=== PATIENT | female | born 1965 | race Caucasian/White ===

== ENCOUNTER 2020-02-14 04:05 | Emergency (ER) | payer SELFPAY ==
[~2020-02-14] VITALS: Ht 152.4 cm; Wt 66.7 kg
[2020-02-14 04:12] VITALS: BP 105/75
--- NOTE | 2020-02-14 04:15 | NUR ---
54 y/o female presented to the ED c/o chillsthat began at 0300 today. Pt denies coughing, pt denies N/V, pt denies NORRIS or flu-like symptoms. Pt denies fever. Pt states that she had a surgery in 2012 to remove a blood clot from her heart. Pt states that she takes aspirin. Pt denies taking any other medication. Pt is sitting upright in bed, bed is locked and in lowest position. Side rails x1. Pt is not in any acute distress at this time. PMH: pre-diabetic, clots NKA
--- NOTE | 2020-02-14 04:16 | NUR ---
To ED bed 09
--- NOTE | 2020-02-14 04:22 | NUR ---
ERMD AT BEDSIDE FOR MEDICAL EVALUATION.
--- NOTE | 2020-02-14 04:37 | NUR ---
EKG PERFORMED AT BEDSIDE. EKG READS SINUS TACHYCARDIA @ 118
--- NOTE | 2020-02-14 04:38 | NUR ---
RT AT BEDSIDE
--- NOTE | 2020-02-14 04:39 | NUR ---
blood labs and mike swab collected and walked over to lab
--- NOTE | 2020-02-14 04:41 | NUR ---
xray at bedside
[2020-02-14 04:56] LABS: BASOPHILS # (AUTO) 0.1 K/uL (0.00-0.22); BASOPHILS % (AUTO) 0.4 % (0.0-2.0); EOSINOPHILS # (AUTO) 0.1 K/uL (0-0.4); EOSINOPHILS % (AUTO) 0.5 % (0.0-4.0); HEMATOCRIT 37.2 % (36-48); HEMOGLOBIN 12.3 g/dL (12.0-16.0); LYMPHOCYTES # (AUTO) 1.3 K/uL (2.5-16.5); MEAN CORPUSCULAR HEMOGLOBIN 30 pg (27-31); MEAN CORPUSCULAR HGB CONC 33 g/dL (33-37); MEAN CORPUSCULAR VOLUME 89.8 fL (80-94); MONOCYTES # (AUTO) 0.3 K/uL (0.8-1.0); MONOCYTES % (AUTO) 1.9 % (1.7-9.3); NEUTROPHILS # (AUTO) 13.9 K/uL (1.8-7.7); NEUTROPHILS % (AUTO) 89.2 % (42.2-75.2); PLATELET COUNT (AUTO) 314 K/uL (140-450); RED BLOOD CELL COUNT(AUTO) 4.14 MIL/uL (4.20-5.40); RED CELL DISTRIBUTION WIDTH 12.9 % (11.6-13.7); WHITE BLOOD COUNT (AUTO) 15.6 K/uL (4.8-10.8)
--- NOTE | 2020-02-14 04:57 | NUR ---
Urine specimen collected and walked over to lab.
[2020-02-14 05:12] LABS: ALBUMIN 4.2 g/dL (3.4-5.0); ANION GAP 18.4 (8-16); CARBON DIOXIDE 22.5 mmol/L (21-32); CREATININE 0.7 mg/dL (0.6-1.3); POTASSIUM 3.9 mmol/L (3.5-5.1); TOTAL BILIRUBIN 0.7 mg/dL (0.0-1.0)
--- NOTE | 2020-02-14 05:49 | NUR ---
PT RESTING IN BED, LOCKED AND IN LOWEST POSITION, HOB ELEVATED, SIDE RAIL X1. PT CURRENTLY PLAYING W/ PHONE. VSS. NO ACUTE DISTRESS NOTED.
[2020-02-14 05:51] LABS: APPEARANCE,URINE CLEAR (CLEAR); BILIRUBIN,URINE NEGATIVE (NEGATIVE); BLOOD, URINE NEGATIVE (NEGATIVE); COLOR,URINE ORANGE (YELLOW); LEUKOCYTE ESTERASE ,URINE NEGATIVE (NEGATIVE); NITRITE, URINE POSITIVE (NEGATIVE); UGLUCOSE NEGATIVE (NEGATIVE)
[2020-02-14 05:59] LABS: BARBITURATE, URINE NEGATIVE ng/ml (NEG <=200); BENZODIAZEPINE, URINE NEGATIVE ng/mL (NEG <=200); CANNABINOID, URINE NEGATIVE ng/mL (NEG <=50); COCAINE, URINE NEGATIVE ng/mL (NEG <=300); OPIATE, URINE NEGATIVE ng/mL (NEG <=2000); PHENCYCLIDINE SCREEN,URINE NEGATIVE ng/mL (NEG <=25)
[2020-02-14] MEDS ORDERED: NACL 0.9% 1,000 ML IV ONE (06:00)
[2020-02-14 06:01] LABS: WBC,URINE 0-5 /HPF (0-5)
[2020-02-14] MEDS ORDERED: cefTRIAXone 1,000 MG VIAL ONE (06:06)
--- NOTE | 2020-02-14 06:46 | NUR ---
PER ERMD ONCE FLUIDS ARE COMPLETED, PT MAY BE DISCHARGED.
--- NOTE | 2020-02-14 07:07 | NUR ---
REPORT GIVEN TO BRADY PERDUE FOR TRANSFER OF CARE.
--- NOTE | 2020-02-14 07:08 | NUR ---
TRANSFER OF CARE AT THIS TIME FROM BRADY LEONARD
[2020-02-14 08:10] VITALS: BP 106/40
--- NOTE | 2020-02-14 08:10 | NUR ---
Patient discharged with v/s stable. Written and verbal after care instructions given and explained. Patient alert, oriented and verbalized understanding of instructions. Ambulatory with steady gait. All questions addressed prior to discharge. ID band removed. Patient advised to follow up with PMD. Rx of cipro and motrin given. Patient educated on indication of medication including possible reaction and side effects. Opportunity to ask questions provided and answered.
== END 2020-02-14 08:10 | disposition home or self-care (01) ==
LOC: MED 04:05
DX: N39.0 Urinary tract infection, site not specified (principal); R03.0 Elevated blood-pressure reading, without diagnosis of hypertension; E11.9 Type 2 diabetes mellitus without complications; Z87.81 Personal history of (healed) traumatic fracture; Z20.828 Contact with and (suspected) exposure to other viral communicable diseases
CPT/HCPCS: 36415; 71045; 80053; 80305; 81001; 83605; 85025; 87040; 87086; 87426; 93005; 96365; 99285; J0696; J7030; Q0092